=== PATIENT | male | born 1930 | race Asian ===

== ENCOUNTER 2018-02-06 00:54 | Emergency (ER) | payer MEDICARE ==
[~2018-02-06] VITALS: Ht 170.2 cm; Wt 61.2 kg
[2018-02-06 01:09] VITALS: BP_SYST 127
--- NOTE | 2018-02-06 01:21 | NUR ---
Patient to ER bed 5 to gown for evaluation. Side rails up. Report given to Rod PACKER.
--- NOTE | 2018-02-06 01:21 | NUR ---
Pt BIB BLS from [facility] r/t fall. Per staff, pt was found on floor for unknown amount of time. Pt alert, responsive. Abrasions noted to Right shoulder and forehead.
--- NOTE | 2018-02-06 01:21 | NUR ---
Note herman in EDM - 02/06/18 at 0648 by ADONIS Pt BIB ALS from [facility] r/t fall. Per staff, pt was found on floor for unknown amount of time. Pt alert, responsive. Abrasions noted to Right shoulder and forehead.
--- NOTE | 2018-02-06 02:08 | NUR ---
ER Dr. Quiroz at bedside examining patient.
--- NOTE | 2018-02-06 02:15 | NUR ---
Skin tears to forehead and right shoulder cleansed with NS and pat dry. Telfa pads placed and secured with tegaderm to right shoulder, telfa placed to fore head, secured with tape. Pt tolerated well.
--- NOTE | 2018-02-06 02:20 | NUR ---
Skin tear and bruising noted to right wrist area. Hilbert plastic bracelet holding keys noted above skin tear. Bracelet removed, site cleansed with NS, pat dry, telfa dsg applied, secured with tegaderm.
--- NOTE | 2018-02-06 02:32 | NUR ---
Pt to CT via stretcher.
--- NOTE | 2018-02-06 02:54 | NUR ---
Pt returns from CT. No needs verbalized at this time.
[2018-02-06 02:59] LABS: BASOPHILS % (AUTO) 0.3 % (0.0-2.0); EOSINOPHILS % (AUTO) 0.2 % (0.0-4.0); HEMATOCRIT 37.5 % (36-54); HEMOGLOBIN 12.6 g/dL (14.0-18.0); LYMPHOCYTES # (AUTO) 1.4 K/uL (1.0-5.5); LYMPHOCYTES % (AUTO) 8.3 % (20.5-51.5); MEAN CORPUSCULAR HEMOGLOBIN 31 pg (27-31); MEAN CORPUSCULAR HGB CONC 34 % (32-36); MEAN CORPUSCULAR VOLUME 92 fL (79.0-98.0); MONOCYTES # (AUTO) 0.8 K/uL (0.0-1.0); MONOCYTES % (AUTO) 4.6 % (1.7-9.3); NEUTROPHILS # (AUTO) 14.1 K/uL (1.8-7.7); NEUTROPHILS % (AUTO) 86.6 % (40.0-70.0); PLATELET COUNT (AUTO) 400 K/uL (130-430); RED BLOOD CELL COUNT(AUTO) 4.07 MIL/uL (4.2-6.2); RED CELL DISTRIBUTION WIDTH 14.3 % (9.0-15.0); WHITE BLOOD COUNT (AUTO) 16.3 K/uL (4.8-10.8)
[2018-02-06 03:09] LABS: ANION GAP 10 (5-15); CALCIUM 8.7 mg/dL (8.4-11.0); CHLORIDE 102 mmol/L (98-107); CREATININE 2.13 mg/dL (0.55-1.30); POTASSIUM 3.8 mmol/L (3.5-5.1); SODIUM SERUM 139 mmol/L (136-145); UREA NITROGEN, BLOOD 35 mg/dL (8-21)
[2018-02-06] MEDS ORDERED: NACL 0.9% 1,000 ML IV ONE ×2 (03:12→04:25)
[2018-02-06 03:13] LABS: INR 0.9 (0.80-1.20); PROTHROMBIN TIME 9.7 SECS (9.5-12.5)
[2018-02-06] MEDS ORDERED: DEXTROSE 50% JECT 50 ML DISP.SYRIN IVP ONE (03:15)
[2018-02-06 03:16] LABS: ALANINE AMINOTRANSFERASE 9 U/L (12-78); ALBUMIN 2.6 g/dL (3.4-4.8); ASPARTATE AMINOTRANSFERASE 23 U/L (10-37); TOTAL BILIRUBIN 0.5 mg/dL (0.0-1.0)
[2018-02-06 03:18] LABS: GLUCOSE 45 mg/dL (70-99)
[2018-02-06] MEDS ORDERED: DEXTROSE 50% JECT 50 ML DISP.SYRIN ONE (03:22)
--- NOTE | 2018-02-06 03:30 | NUR ---
Pt more alert and talkative after administration of D50 IVP. AAOx2.
--- NOTE | 2018-02-06 03:55 | NUR ---
Called housekeeping/laundry for food for pt.
[2018-02-06 04:12] LABS: BILIRUBIN,URINE NEGATIVE (NEGATIVE); BLOOD, URINE 3+ (NEGATIVE); CLARITY/URINE HAZY (CLEAR); COLOR,URINE YELLOW (YELLOW); GLUCOSE,URINE 1+ (NEGATIVE); KETONES,URINE NEGATIVE (NEGATIVE); LEUKOCYTE ESTERASE ,URINE 3+ (NEGATIVE); NITRITE, URINE POSITIVE (NEGATIVE); PROTEIN URINE 1+ (NEGATIVE)
--- NOTE | 2018-02-06 04:15 | NUR ---
Pt provided with sandwich, pudding, and grape juice.
[2018-02-06] MEDS ORDERED: cefTRIAXone 1 GM IVPB PREMIX 50 ML IV ONE (04:30)
[2018-02-06 04:43] LABS: BARBITURATE, URINE NEGATIVE (NEG <=200); BENZODIAZEPINE, URINE NEGATIVE (NEG <=150); CANNABINOID, URINE NEGATIVE (NEG <=50); COCAINE, URINE NEGATIVE (NEG <=150); METHAMPHETAMINES SCREEN,URINE NEGATIVE (NEG <=500); OPIATE, URINE NEGATIVE (NEG <=100); PHENCYCLIDINE SCREEN,URINE NEGATIVE (NEG <=25); UR TRICYCLIC ANTIDEPRESSANTS NEGATIVE (NEG <=300); URINE AMPHETAMINE NEGATIVE (NEG <=500); URINE METHADONE NEGATIVE (NEG <=200); URINE OXYCODONE SCREEN NEGATIVE (NEG <=100); URINE PROPOXYPHENE SCREEN NEGATIVE (NEG <=300)
[2018-02-06 05:07] LABS: RBC,URINE 50-80 /HPF (0-3); WBC,URINE >100 /HPF (0-3)
[2018-02-06 05:08] LABS: BACTERIA,URINE MANY /HPF (None Seen)
[2018-02-06 06:00] LABS: CKMB RELATIVE INDEX 1.7 (0.0-2.9); CREATINE KINASE MB 6.5 ng/mL (0-3.6)
--- NOTE | 2018-02-06 06:07 | NUR ---
Per VO Dr. Quiroz, remaining 1 Liter NS to be stopped and D5NS to run in it's place at 150 mL/hr.
[2018-02-06] MEDS ORDERED: D5NS 1,000 ML IV ONE (06:15)
--- NOTE | 2018-02-06 06:15 | NUR ---
Pt report called to OCHOA Santoro at [facility].
--- NOTE | 2018-02-06 06:30 | NUR ---
Pt alert, talkative, denies c/o pain or discomfort, no needs verbalized.
[2018-02-06 07:08] VITALS: BP_SYST 125
--- NOTE | 2018-02-06 07:08 | NUR ---
Patient to be transferred to [facility]. Is being transferred due to higher level of care. Receiving facility has accepting physician and available space. ER physician has signed transfer form. Patient or responsible libertarian has agreed to transfer and signed form. Patient belongings inventoried and will be sent with patient. Copy of nursing notes, lab reports, EKG, Physicians Orders and X-rays to be sent with patient. Report called to Will, RN at receiving facility. Receiving physician is Dr. Rosa. [facility] ambulance service has been called for transfer. ETA is [phone].
--- NOTE | 2018-02-08 14:05 | NUR ---
RECEIVED +URINE CULTURE FROM LABORATORY, PT WAS RESISTANT TO MEDICATION GIVEN. DISCUSSED CASE WITH SAE FULLER, PT TRANSFERRED TO [facility]. WILL FAX RESULTS TO PT.
== END 2018-02-06 07:08 | disposition short-term general hospital (02) ==
LOC: SED 00:54
DX: S00.81XA Abrasion of other part of head, initial encounter (principal); S40.211A Abrasion of right shoulder, initial encounter; N39.0 Urinary tract infection, site not specified; E16.2 Hypoglycemia, unspecified; W18.40XA Slipping, tripping and stumbling without falling, unspecified, initial encounter; Y93.89 Activity, other specified; Y92.89 Other specified places as the place of occurrence of the external cause; Y99.8 Other external cause status
CPT/HCPCS: 36415; 70450; 71045; 80053; 80307; 81000; 82550; 82553; 82962; 83605; 84484; 85025; 85610; 85730; 87040; 87086; 87186; 93005; 96365; 96366; 96367; 96375; 99285; J0696; J7030; J7042